=== PATIENT | female | born 1990 | race Caucasian/White ===

== ENCOUNTER 2019-07-02 18:59 | Emergency (ER) | payer MEDICAID, SELFPAY ==
[2019-07-02 19:18] VITALS: BP 126/75; PULSE 87; RESP 18; TEMP 37.2; O2SAT 97; BMI 31.2
--- NOTE | 2019-07-02 19:30 | HMH.EDUTC ---
[facility] [place] Impression: Cellulitis of left external ear Disposition: Home, Self-Care Condition on Discharge: Good Instructions: Cellulitis Additional Instructions: Keep the wounds clean and dry. Follow up with your regular doctor. Take the antibiotics as directed and apply the ear drops as directed. GO TO THE ER FOR ANY WORSENING SYMPTOMS, ESPECIALLY IF YOU HAVE ANY FEVER, CHILLS, OR WORSENING PAIN OR SWELLING Prescriptions: Sulfamethoxazole/Trimethoprim [Bactrim DS tablet] 1 each PO BID 10 Days #20 tab Transmission Status: Received by [facility][id number] Ciprofloxacin HCl [Ciprofloxacin 0.2% Otic Soln] 0.25 ml EAR-LEFT BID 7 Days #1 bottle Transmission Status: Received by [facility] #[id number] cephALEXin [Keflex 500mg Cap] 500 mg PO Q6H 10 Days #40 cap Transmission Status: [id number] Referrals: Provider,Referral, MD [Primary Care Provider] - Forms: Work/School Release Time of Disposition: 19:41 Medical Decision Making - Medical Records Medical records reviewed: No: I reviewed the patient's medical records. - Jeromy Inquiry Pt receiving controlled substance: No Vital Signs: 07/02/19 19:18 07/02/19 19:52 Temperature 99.0 F 99 F Temperature Source Oral Pulse Rate 87 Pulse Rate [Right Radial] 87 Respiratory Rate 18 18 Blood Pressure 126/75 Blood Pressure [Right Arm] 126/75 Blood Pressure Mean [Right Arm] 92 Blood Pressure Source [Right Arm] Automatic Cuff Blood Pressure Position [Right Arm] Sitting 02 Sat by Pulse Oximetry 97 Oxygen Delivery Method Room Air Orders (Tests/Meds): ORDERS Category Date Time Status Wound Culture and Gram Stain Stat Micro 07/02/19 19:[address] [facility] [place] - General Stated complaint: Ear pain Time Seen by Provider: 07/02/19 19:25 Mode of Arrival: Ambulatory Source of Information: Patient Limitations: No Limitations Description of Symptoms (Recalled from Triage Doc. by RN): PT C/O SPIDER BITE TO LT EAR THAT HAS NOW BECOME SORE, RED, SWOLLEN, DRAINING AND CAUSING HER TO FEEL EXTREMELY ILL. HEENT Symptoms (Recalled from RN notes): Yes (INFECTED BITE ON EAR) Resp Symptoms (Recalled from RN notes): No Skin Symptoms (Recalled from RN notes): No MS Symptoms (Recalled from RN notes): No Functional Status (Recalled from RN notes): N/A - History of Present Illness Provider Complaint: She c/o left ear pain and drainage. She states that about 4 days ago she felt a bug or a spider bite her on the outside of her left ear. After that, the ear began to hurt and she began to have pain and swelling of the area around the outside of her ear canal. She denies any fever or chills. - Related Data Previous Rx's Medication Instructions Recorded Ciprofloxacin HCl [Ciprofloxacin 0.25 ml EAR-LEFT BID 7 Days #1 07/02/19 0.2% Otic Soln] bottle Sulfamethoxazole/Trimethoprim 1 each PO BID 10 Days #20 tab 07/02/19 [Bactrim DS tablet] cephALEXin [Keflex 500mg Cap] 500 mg PO Q6H 10 Days #40 cap 07/02/19 Allergies Allergy/AdvReac Type Severity Reaction Status Date / Time Penicillins [PENICILLINS] Allergy Mild Unverified 02/01/17 15:12 - Worker's Comp Is this a Worker's Comp case?: No [facility] History - Hepatitis A Screen Drug use history?: No High risk sexual behaviors?: No History of sexually transmitted infection?: No Currently employed?: No Childcare worker?: No Do you have indoor plumbing?: Yes Do you have electricity?: Yes Attestation statement:: This patient has been screened for Hepatitis A risk factors. I have reviewed the patient's past medical history: Yes Medical History: Denies:: Diabetes Mellitus Type 1, Diabetes Mellitus Type 2 - Social History Smoking Status: Current every day smoker Tobacco Type: cigarettes # Packs/Day (cigarettes): 1 Alcohol Intake: never Occupational Status: other ROS Obtained: Yes All systems reviewed & no additional complaints - Constitutional Constitutional:
[2019-07-02 19:52] VITALS: BP 126/75; PULSE 87; RESP 18; TEMP 37.2; O2SAT 97
== END 2019-07-02 19:56 | disposition home or self-care (01) ==
PROVIDERS: Emergency Provider Nurse Practitioner Family
DX: H60.12 Cellulitis of left external ear (principal); F17.210 Nicotine dependence, cigarettes, uncomplicated; Z88.0 Allergy status to penicillin
CPT/HCPCS: 87070; 87077; 87186; 87205; 99201

== ENCOUNTER 2019-07-06 23:02 | Emergency (ER) | payer MEDICAID, SELFPAY ==
[2019-07-06 23:27] VITALS: BP 138/87; PULSE 110; RESP 16; TEMP 36.6; O2SAT 96; BMI 30.2
[2019-07-06 23:37] LABS: Microscopic, Urine URINE MICROSCOPIC (MICROSCOPIC)
[2019-07-06 23:39] LABS: Appearance,Urine CLEAR (Clear); Bilirubin,Urine Negative (Negative); Blood, Urine 3+ (Negative); Color,Urine YELLOW (Yellow); Glucose,Urine (UA) Negative (Negative); Ketones,Urine Negative (Negative); Leukocyte Esterase,Urine 1+ (Negative); Nitrate,Urine Negative (Negative); Protein,Urine Negative (Negative); Specific Gravity, Urine <= 1.005 (1.005-1.030); Urobilinogen,Urine 0.2 EU/dl (0.2)
[2019-07-06 23:48] LABS: Urine Pregnancy, HCG Qual. Negative (Negative)
[2019-07-06 23:49] LABS: Amphetamine/Metha Screen,Urine Negative ng/ml (<1000); Benzodiazepines Screen,Urine Negative ng/ml (<200)
[2019-07-06 23:50] LABS: Barbiturates Screen,Urine Negative ng/ml (<200); Cannabinoid Screen,Urine Negative ng/ml (<50)
[2019-07-06 23:51] LABS: Cocaine Screen,Urine Negative ng/ml (<300)
[2019-07-06 23:52] LABS: Methadone Screen,Urine Negative ng/ml (<300); Opiate Screen,Urine Negative ng/ml (<300)
[2019-07-06 23:53] LABS: Phencyclidine Screen,Urine Negative ng/ml (<25)
[2019-07-06 23:53] LABS: Basophils # 0.1 K/mm3 (0-0.2); Basophils % 1.5 % (0.1-2.0); Eosinophils # 0.5 K/mm3 (0.0-0.4); Eosinophils % 5.8 % (0.1-12.0); Hematocrit 37.6 % (37.0-47.0); Hemoglobin 13.3 g/dL (12.2-16.2); Lymphocytes % 24.4 % (10-50); Mean Corpuscular HGB Conc 35.5 g/dL (31.8-35.4); Mean Corpuscular Hemoglobin 29.9 pg (27.0-31.2); Mean Corpuscular Volume 84.3 fl (81-99); Mean Platelet Volume 8.2 fl (7.4-10.4); Monocytes # 0.6 K/mm3 (0.1-1.0); Monocytes % 7.1 % (1.7-9.3); Neutrophils # 4.9 K/mm3 (1.8-7.8); Neutrophils % 61.2 % (37.0-80.0); Platelet Count 201 K/mm3 (142-424); Red Blood Count 4.45 M/mm3 (4.20-5.40); Red Cell Distribution Width 14.2 % (11.5-17.5)
[2019-07-06 23:57] LABS: Chloride 101 mmol/L (98-107)
[2019-07-06 23:58] LABS: Potassium 3.3 mmoL/L (3.5-5.1); Sodium 136 mmol/L (136-145)
[2019-07-07 00:04] LABS: Alanine Aminotransferase 66 U/L (12-78); Albumin Level 3.8 g/dl (3.5-5.0); Albumin/Globulin Ratio 1.1 (1.1-1.8); Alkaline Phosphatase 87 U/L (38-126); Anion Gap 8.3 mEq/L (5-15); Aspartate Amino Transferase 63 U/L (14-36); Bilirubin,Total 0.4 mg/dl (0.2-1.3); Blood Urea Nitrogen 5 mg/dl (7-17); Calcium 8.5 mg/dl (8.4-10.2); Carbon Dioxide 30 mmol/L (22.0-30.0); Creatinine Clearance Estimated 207 mL/min (50-200); Estimated Glomerular Filt Rate 145 ml/min (>60); GFR (African American) 175 ML/MIN (>60); Globulin 3.5 g/dL (1.3-3.2); Glucose 117 mg/dl (74-100); Total Protein,Serum 7.3 g/dl (6.3-8.2)
[2019-07-07 00:05] LABS: Acetaminophen < 10 ug/ml (10-30); Ethyl Alcohol < 10 mg/dl (0-10); Salicylate < 1.0 mg/dL (2.0-20.0)
[2019-07-07 00:23] LABS: Barbiturates Screen,Urine Negative ng/ml (<200); Benzodiazepines Screen,Urine Negative ng/ml (<200)
[2019-07-07 00:24] LABS: Amphetamine/Metha Screen,Urine Negative ng/ml (<1000)
[2019-07-07 00:25] LABS: Cocaine Screen,Urine Negative ng/ml (<300); Methadone Screen,Urine Negative ng/ml (<300)
--- NOTE | 2019-07-07 00:25 | XR_ITS ---
PROCEDURE: XR CHEST PORTABLE Patient Age:29Y CLINICAL HISTORY: syncope. Vomiting. Smoker. The the the the COMPARISON: No exams were available for comparison FINDINGS: Portable upright CXR, with slightly lordotic projection with chest very slightly rotated but The lungs are well expanded and clear with nothing definitely acute.. The heart is normal in size. Karla and mediastinal structures unremarkable. Chest wall and osseous structures overall satisfactory with no acute findings. These subtle dextrocurvature of the mid lower T-spine may merely be positional. IMPRESSION: Lungs clear with nothing definitely acute. Dictated by: Maik Lo MD 07/07/2019 09:09 Electronically signed by Maik Lo MD in [place] 07/07/2019 09:09
[2019-07-07 00:26] LABS: Opiate Screen,Urine Negative ng/ml (<300)
[2019-07-07 00:27] LABS: Phencyclidine Screen,Urine Negative ng/ml (<25)
[2019-07-07 00:38] LABS: Cannabinoid Screen,Urine Negative ng/ml (<50)
--- NOTE | 2019-07-07 00:39 | PC.NURSE ---
Gave 50mg phenegran per MD request
--- NOTE | 2019-07-07 00:44 | HMH.EDDIZZ ---
ED Disposition Clinical Impression: Opiate abuse, continuous Disposition: Home, Self-Care Condition on Discharge: Good Instructions: DI for Syncope in Adults (Fainting), DI for Syncope in Children (Fainting) Referrals: Provider,Referral, [Primary Care Provider] - - Critical Care Critical Care Time: No Attestation: On 07/06/19, the high probability of a clinically significant, sudden or life threatening deterioration of the following system(s) required my full and direct attention, intervention and personal management. The time I documented below is in addition to time spent performing reported procedures but includes the following listed in this critical care notation. Medical Decision Making - Medical Records Medical records reviewed: Yes: I reviewed the patient's medical records. - Jeromy Inquiry Pt receiving controlled substance: No Vital Signs: 07/06/19 23:27 Temperature 97.9 F Temperature Source Oral Pulse Rate [Right Brachial] 110 H Respiratory Rate 16 Blood Pressure [Right Arm] 138/87 Blood Pressure Mean [Right Arm] 104 Blood Pressure Source [Right Arm] Automatic Cuff Blood Pressure Position [Right Arm] Sitting 02 Sat by Pulse Oximetry 96 Oxygen Delivery Method Room Air - Lab Data Lab results reviewed: Yes: I reviewed the patient's lab results. Lab Results 07/06/19 23:17: Urine Color Yellow, Urine Appearance Clear, Urine pH 6.0, Ur Specific Logan <= 1.005, Urine Protein Negative, Urine Glucose (UA) Negative, Urine Ketones Negative, Urine Blood 3+, Urine Nitrate Negative, Urine Bilirubin Negative, Urine Urobilinogen 0.2, Ur Leukocyte Esterase 1+ A, Urine RBC 5-10, Urine WBC 5-10, Ur Squamous Epith Cells 3-5 07/06/19 23:17: Urine HCG, Qual Negative 07/06/19 23:17: Urine Opiates Screen Negative, Urine Methadone Screen Negative, Ur Barbituates Screen Negative, Ur Phencyclidine Scrn Negative, Ur Amphetamines Screen Negative, U Benzodiazepines Scrn Negative, Urine Cocaine Screen Negative, U Marijuana (THC) Screen Negative 07/06/19 23:45: WBC 8.0, RBC 4.45, Hgb 13.3, Hct 37.6, MCV 84.3, MCH 29.9, MCHC 35.5 H, RDW 14.2, Plt Count 201, MPV 8.2, Neut % (Auto) 61.2, Lymph % (Auto) 24.4, Sutton % (Auto) 7.1, Eos % (Auto) 5.8, Baso % (Auto) 1.5, Neut # (Auto) 4.9, Lymph # (Auto) 2.0, Sutton # (Auto) 0.6, Eos # (Auto) 0.5 H, Baso # (Auto) 0.1 07/06/19 23:45: Sodium 136, Potassium 3.3 L, Chloride 101, Carbon Dioxide 30, Anion Gap 8.3, BUN 5 L, Creatinine 0.50 L, Estimated Creat Clear 207, Estimated GFR 145, Est GFR ( Amer) 175, Glucose 117 H, Calcium 8.5, Total Bilirubin 0.4, AST 63 H, ALT 66, Alkaline Phosphatase 87, Total Protein 7.3, Albumin 3.8, Globulin 3.5 H, Albumin/Globulin Ratio 1.1, Salicylates < 1.0 L, Acetaminophen < 10 L 07/06/19 23:45: Plasma/Serum Alcohol < 10 07/07/19 00:00: Urine Opiates Screen Negative, Urine Methadone Screen Negative, Ur Barbituates Screen Negative, Ur Phencyclidine Scrn Negative, Ur Amphetamines Screen Negative, U Benzodiazepines Scrn Negative, Urine Cocaine Screen Negative, U Marijuana (THC) Screen Negative Result diagrams: 07/06/19 23:45 07/06/19 23:45 Orders (Tests/Meds): ED MEDICATIONS Discontinued Medications Generic Name Dose Route Start Last Admin Trade Name Freq PRN Reason Stop Dose Admin Naloxone HCl 2 mg 07/07/19 00:33 Narcan 2mg/2ml Syringe IV 07/07/19 00:34 ONCE ONE Promethazine HCl 50 mg 07/07/19 00:37 Phenergan 25mg/Ml 1ml Vial IV 07/07/19 00:38 ONCE ONE Sodium Chloride 25 ml 07/07/19 00:37 Sod Chlor 0.9% 25ml Bag IV 07/07/19 00:38 ONCE ONE ORDERS Category Date Time Status XR chest portable Stat Exams 07/07/19 00:25 Taken Urine Culture Stat Micro 07/06/19 23:17 Received Medical Decision Narrative: Patient's urine drug screen came back negative for any substance however this patient is exhibiting opiate-like behaviors and opiate-like intoxication. I did give her 2 mg of Narcan IV immediatel
[2019-07-07 01:16] VITALS: BP 132/70; PULSE 72; RESP 18; TEMP 36.8; O2SAT 98
== END 2019-07-07 01:18 | disposition home or self-care (01) ==
PROVIDERS: Emergency Provider Family Medicine
DX: F11.20 Opioid dependence, uncomplicated (principal); R11.2 Nausea with vomiting, unspecified; Z88.0 Allergy status to penicillin; F17.210 Nicotine dependence, cigarettes, uncomplicated
CPT/HCPCS: 71045; 80053; 80305; 80329; 81001; 81025; 85025; 87086; 96365; 96374; 96375; 99283; J2310

== ENCOUNTER 2021-02-14 19:14 | Emergency (ER) | payer MEDICAID, SELFPAY ==
[2021-02-14 19:14] VITALS: BP 128/85; PULSE 98; RESP 18; TEMP 38.3; O2SAT 94; BMI 33.5
--- NOTE | 2021-02-14 19:15 | XR_ITS ---
PROCEDURE INFORMATION: Exam: XR Left Tibia and Fibula Exam date and time: 02/14/2021 7:15 PM Age: 30 years old Clinical indication: Injury or trauma; Fall; Sprain or strain; Injury date: 02/14/2021; Injury details: Fell and twisted left lower leg swelling lateral ankle; Additional info: Fall, ankle pain TECHNIQUE: Imaging protocol: XR Left tibia and fibula. Views: 2 views. Total images: 4 COMPARISON: CR XR ANKLE LT MIN 3V 02/14/2021 7:19 PM FINDINGS: Bones/joints: Small thin calcifications distal to the lateral malleolus consistent with small bony avulsion flakes. Normal alignment is maintained at the knee and ankle. The ankle mortise joint is well maintained. Knee joint spaces are grossly well-maintained. Proximal and distal tibiofibular alignment is normal. No blastic or lytic lesions. No gross joint effusion. Soft tissues: No periostitis or osteolysis. Moderate lateral soft tissue swelling at the ankle. No radiopaque foreign bodies. Other findings: No acute macrofracture. IMPRESSION: 1. No gross macro fractures. 2. Moderate lateral soft tissue swelling at the ankle with small acute bony avulsion flakes distal to the lateral malleolus.
--- NOTE | 2021-02-14 19:15 | XR_ITS ---
PROCEDURE INFORMATION: Exam: XR Left Ankle Exam date and time: 02/14/2021 7:15 PM Age: 30 years old Clinical indication: Injury or trauma; Fall; Sprain or strain; Injury date: 02/14/2021; Injury details: Fell and twisted lower left leg swelling lateral ankle; Additional info: Fall, ankle pain TECHNIQUE: Imaging protocol: XR Left ankle. Views: 3 or more views. Total images: 3 COMPARISON: No relevant prior studies available. FINDINGS: Bones/joints: There is a small cluster of 3 small bone flakes distal to the lateral malleolar tip measuring between 1 mm and 2.2 mm in size, consistent with small bony avulsion flake injuries. No brenden macro fracture. No blastic or lytic lesions. The ankle mortise joint is well maintained. No joint effusion. The visualized hindfoot and midfoot are grossly well aligned. No hindfoot coalition. Soft tissues: No periostitis or osteolysis. Moderate lateral soft tissue swelling. No radiopaque foreign bodies. IMPRESSION: 1. No brenden macro fractures. 2. Cluster of 3 small acute appearing bone flakes distal to the lateral malleolar tip consistent with small acute bony avulsion flakes. 3. Moderate lateral soft tissue swelling.
--- NOTE | 2021-02-14 19:15 | HMH.EDGENADL ---
ED Disposition Clinical Impression: Left ankle sprain Qualifiers: Encounter type: initial encounter Involved ligament of ankle: anterior talofibular ligament Qualified Code(s): S93.492A - Sprain of other ligament of left ankle, initial encounter Disposition: Home, Self-Care Condition on Discharge: Good Instructions: DI for Ankle Sprain, How To Perform RICE (Rest, Ice, Compress, Elevate) Prescriptions: Ibuprofen [Ibuprofen 600mg Tablet] 600 mg PO Q6 PRN #18 tab PRN Reason: pain Transmission Status: Received by [facility][id number] ondansetron HCL [Ondansetron 4mg tab*] 4 mg PO Q6 PRN #12 tab PRN Reason: Nausea Transmission Status: Received by [id number] Referrals: Provider,Referral, MD [Primary Care Provider] - Time of Disposition: 19:48 - Critical Care Critical Care Time: No Attestation: On , the high probability of a clinically significant, sudden or life threatening deterioration of the following system(s) required my full and direct attention, intervention and personal management. The time I documented below is in addition to time spent performing reported procedures but includes the following listed in this critical care notation. Medical Decision Making - Medical Records Medical records reviewed: Yes: I reviewed the patient's medical records. - Jeromy Inquiry Pt receiving controlled substance: No Vital Signs: 02/14/21 19:14 Temperature 101.0 F H Temperature Source Oral Pulse Rate [Apical] 98 H Respiratory Rate 18 Blood Pressure [Right Arm] 128/85 Blood Pressure Mean [Right Arm] 99 Blood Pressure Source [Right Arm] Automatic Cuff Blood Pressure Position [Right Arm] Sitting 02 Sat by Pulse Oximetry 94 L Oxygen Delivery Method Room Air Orders (Tests/Meds): ED MEDICATIONS Discontinued Medications Generic Name Dose Route Start Last Admin Trade Name Freq PRN Reason Stop Dose Admin Ibuprofen 600 mg 02/14/21 19:49 02/14/21 19:51 Ibuprofen 600 Mg Tablet PO 02/14/21 19:50 600 mg ONCE ONE Administration ORDERS Category Date Time Status Rapid PCR Covid and Flu A/B Stat Lab 02/14/21 19:27 Received - Radiology Data #1 Image(s): Tib/Fib, Ankle Image Reviewed: Yes I reviewed the patient's radiology results, Yes I have reviewed radiologist's interpretation Preliminary Findings: Normal/NAD IMPRESSION: 1. No gross macro fractures. 2. Moderate lateral soft tissue swelling at the ankle with small acute bony avulsion flakes distal to the lateral malleolus. Medical Decision Narrative: In summary this is a 30-year-old female presenting to the emergency department with left ankle pain after a fall. Patient clinically stable on arrival. Vital signs within normal limits. Concern for fibular fracture, tibia fracture, ankle sprain, contusion. Will obtain x-rays of the left tib-fib and ankle. X-rays personally reviewed and interpreted. There is a widening of the joint space at the junction of the talus and the fibula. Most likely a significant ankle sprain. Cannot exclude a tear of the anterior talofibular ligament. Radiologist commented on small bone fragments of the distal fibula. No other bony abnormalities. Patient counseled on management of high-grade ankle sprain. Given walking boot for comfort. Recommended she follow-up with her PCP. Tylenol Motrin for pain. Given return precautions. Stable for discharge. General Adult HPI - General Chief complaint: Extremity Injury, Lower Stated complaint: Pain Time Seen by Provider: 02/14/21 19:16 Mode of Arrival: EMS Source of Information: Patient, EMS Limitations: No Limitations - History of Present Illness HPI narrative: 30-year-old female presenting to the emergency department with fall, left ankle pain. She was walking on a wet road just prior to arrival when she slipped, lost her balance, fell. Her left ankle inverted. She had immediate pain on the lateral aspect near her lateral malleolu
[2021-02-14 19:34] LABS: Coronavirus 19, PCR Not Detected (NotDetected); Influenza A, PCR Not Detected (NotDetected); Influenza B, PCR Not Detected (NotDetected)
[2021-02-14 20:07] VITALS: BP 128/85; PULSE 98; RESP 18; TEMP 37.2; O2SAT 97
== END 2021-02-14 20:22 | disposition home or self-care (01) ==
PROVIDERS: Emergency Provider Emergency Medicine
DX: S93.492A Sprain of other ligament of left ankle, initial encounter (principal); W01.0XXA Fall on same level from slipping, tripping and stumbling without subsequent striking against object, initial encounter; Y92.414 Local residential or business street as the place of occurrence of the external cause; F17.210 Nicotine dependence, cigarettes, uncomplicated; R05.1 Acute cough
CPT/HCPCS: 73590; 73610; 99282; C9803; U0003; U0005